=== PATIENT | female | born 1980 | race Caucasian/White ===

== ENCOUNTER 2017-11-10 03:27 | Inpatient (IN) | payer MEDICAID ==
[~2017-11-10] VITALS: Ht 175.3 cm; Wt 60.1 kg
[2017-11-10] VITALS (12 sets, daily range): BP systolic 100–127; BP diastolic 68–83
[2017-11-10] MEDS ORDERED: METOPROLOL TART25 MG PO (03:29)
[2017-11-10 04:00] LABS: APPEARANCE HAZY (CLEAR); BACTERIA MANY /hpf (NONE SEEN); BILIRUBIN 2+ (NEGATIVE); COLOR DK YELLOW (YELLOW); EPITHELIAL CELLS NSEEN /hpf (0-5); GLUCOSE NEGATIVE (NEGATIVE); HCG URINE NEGATIVE (NEGATIVE); KETONE SMALL mg/dL (NEGATIVE); NITRITE POSITIVE (NEGATIVE); PROTEIN NEGATIVE (NEGATIVE); RED CELLS - URINE 0-5 /hpf (0-5); UROBILINOGEN NORMAL (NORMAL); WHITE CELLS - URINE 25-50 /hpf (0-5)
[2017-11-10 04:08] LABS: BASOPHILS 0.4 % (0-2); EOSINOPHILS 1.8 % (0-7); HEMATOCRIT 36.3 % (36.0-48.0); HEMOGLOBIN 12.2 g/dL (12-16); IMMATURE GRANULOCYTES 0.4 % (0-5); LYMPHOCYTES 25.7 % (15-50); MCH 31.9 pg (26.0-34.0); MCHC 33.6 g/dL (31.0-37.0); MCV 94.8 fL (80.0-100.0); MEAN PLATELET VOLUME 11.4 fL (7.4-10.4); MONOCYTES 8.4 % (2-11); NEUTROPHILS 63.3 % (40-80); PLATELET COUNT 100 10x3/uL (130-400); RBC 3.83 10x6/uL (4.00-5.40); RDW 12.4 % (11.5-14.5); WBC 5.1 10x3/uL (4.8-10.8)
[2017-11-10 04:21] LABS: ALKALINE PHOSPHATASE 172 U/L (46-116); ALT (SGPT) 513 U/L (10-68); BILIRUBIN - TOTAL 8.52 mg/dL (0.2-1.3); CALC OSMOLALITY 276 mosm/kg (275-300); CALCIUM 7.9 mg/dL (8.5-10.1); CARBON DIOXIDE 27.7 mmol/L (21.0-32.0); CHLORIDE - SERUM 107 mmol/L (98-107); CREATININE - SERUM 0.7 mg/dL (0.6-1.3); GLUCOSE 92 mg/dL (74-106); POTASSIUM - SERUM 3.6 mmol/L (3.5-5.1); SODIUM 140 mmol/L (136-145); UREA NITROGEN 6 mg/dL (7-18); eGFR NON AFRICAN AMERICAN > 90 mL/min (90-120)
[2017-11-10 04:24] LABS: CHOL - HDL RATIO 2.3 ratio (2.3-4.1); CHOLESTEROL, TOTAL 107 mg/dL (0-200); HDL CHOLESTEROL 46 mg/dL (32-96); LDL CHOLESTEROL 53 mg/dL (0-100); LDL-HDL RATIO 1.2 ratio (1.5-3.5); TRIGLYCERIDE 41 mg/dL (30-200)
[2017-11-10 04:25] LABS: APTT 26.2 SECONDS (22.8-39.4); INR 1.15 (0.85-1.17); PROTIME 14.3 SECONDS (11.6-15.0)
[2017-11-10 04:28] LABS: LIPASE 5415 U/L (73-393)
[2017-11-10 04:29] LABS: AMYLASE - SERUM 476 U/L (25-115)
[2017-11-10 12:10] LABS: % SATURATION 40 % (15-55); IRON 96 ug/dl (35-150); TOTAL IRON BIND CAPACITY 238 ug/dl (260-445); UNSAT IRON BIND CAPACITY 142 ug/dl (150-375)
[2017-11-11] VITALS (7 sets, daily range): BP systolic 103–140; BP diastolic 58–81; Ht 175.3 cm; Wt 60.1 kg
[2017-11-11 06:31] LABS: BASOPHILS 0.6 % (0-2); EOSINOPHILS 1.5 % (0-7); HEMATOCRIT 32.1 % (36.0-48.0); HEMOGLOBIN 10.7 g/dL (12-16); IMMATURE GRANULOCYTES 0.3 % (0-5); LYMPHOCYTES 29.2 % (15-50); MCH 31.8 pg (26.0-34.0); MCHC 33.3 g/dL (31.0-37.0); MCV 95.3 fL (80.0-100.0); MEAN PLATELET VOLUME 12.3 fL (7.4-10.4); MONOCYTES 6.8 % (2-11); NEUTROPHILS 61.6 % (40-80); RBC 3.37 10x6/uL (4.00-5.40); RDW 12.3 % (11.5-14.5)
[2017-11-11 06:58] LABS: ALBUMIN 2.5 g/dL (3.4-5.0); ALKALINE PHOSPHATASE 167 U/L (46-116); BILIRUBIN - TOTAL 4.15 mg/dL (0.2-1.3); CALCIUM 7.4 mg/dL (8.5-10.1); CHLORIDE - SERUM 106 mmol/L (98-107); CHOL - HDL RATIO 5.3 ratio (2.3-4.1); CHOLESTEROL, TOTAL 112 mg/dL (0-200); HDL CHOLESTEROL 21 mg/dL (32-96); LDL CHOLESTEROL 74 mg/dL (0-100); LDL-HDL RATIO 3.5 ratio (1.5-3.5); LIPASE 1160 U/L (73-393); POTASSIUM - SERUM 3.5 mmol/L (3.5-5.1); PROTEIN - SERUM 5.2 g/dL (6.4-8.2); SODIUM 137 mmol/L (136-145); TRIGLYCERIDE 87 mg/dL (30-200); UREA NITROGEN 6 mg/dL (7-18)
[2017-11-11 07:00] LABS: ALT (SGPT) 290 U/L (10-68); AMYLASE - SERUM 116 U/L (25-115); CALC OSMOLALITY 268 mosm/kg (275-300); CARBON DIOXIDE 18.2 mmol/L (21.0-32.0); CREATININE - SERUM 0.5 mg/dL (0.6-1.3); GLUCOSE 50 mg/dL (74-106); eGFR NON AFRICAN AMERICAN > 90 mL/min (90-120)
[2017-11-11 07:03] LABS: PLATELET COUNT 72 10x3/uL (130-400); WBC 3.3 10x3/uL (4.8-10.8)
[2017-11-11 07:21] LABS: FOLATE (FOLIC ACID) - SERUM 15.7 ng/mL (>3.0)
[2017-11-11 07:29] LABS: PLATELET ESTIMATE DECREASED
[2017-11-12 01:26] VITALS: BP 110/80
[2017-11-12 05:00] VITALS: BP 113/75
[2017-11-12 06:56] LABS: BASOPHILS 0.3 % (0-2); EOSINOPHILS 2.3 % (0-7); HEMATOCRIT 29.2 % (36.0-48.0); HEMOGLOBIN 9.9 g/dL (12-16); IMMATURE GRANULOCYTES 0.5 % (0-5); MCH 31.9 pg (26.0-34.0); MCHC 33.9 g/dL (31.0-37.0); MCV 94.2 fL (80.0-100.0); MEAN PLATELET VOLUME 11.8 fL (7.4-10.4); MONOCYTES 6.2 % (2-11); NEUTROPHILS 66.7 % (40-80); PLATELET COUNT 79 10x3/uL (130-400); RDW 12.2 % (11.5-14.5); WBC 3.9 10x3/uL (4.8-10.8)
[2017-11-12 07:34] LABS: ALBUMIN 2.1 g/dL (3.4-5.0); ALKALINE PHOSPHATASE 115 U/L (46-116); BILIRUBIN - DIRECT 0.75 mg/dL (0.00-0.30); BILIRUBIN - INDIRECT 0.81 mg/dL (0.00-1.00); BILIRUBIN - TOTAL 1.56 mg/dL (0.2-1.3); CHLORIDE - SERUM 113 mmol/L (98-107); CREATININE - SERUM 0.5 mg/dL (0.6-1.3); LIPASE 886 U/L (73-393); SODIUM 141 mmol/L (136-145); eGFR NON AFRICAN AMERICAN > 90 mL/min (90-120)
[2017-11-12 07:36] LABS: AMYLASE - SERUM 38 U/L (25-115); CALC OSMOLALITY 275 mosm/kg (275-300); CARBON DIOXIDE 23.4 mmol/L (21.0-32.0); GLUCOSE 78 mg/dL (74-106); UREA NITROGEN 2 mg/dL (7-18)
[2017-11-12 07:40] LABS: ALT (SGPT) 180 U/L (10-68); CALCIUM 6.4 mg/dL (8.5-10.1)
[2017-11-12 09:20] VITALS: BP 114/85
[2017-11-12 12:03] VITALS: BP 117/87
[2017-11-12 15:39] VITALS: BP 117/69
[2017-11-12 20:43] VITALS: BP 105/76
[2017-11-13 05:40] VITALS: BP 126/79
[2017-11-13 06:40] LABS: BASOPHILS 0.8 % (0-2); EOSINOPHILS 3.4 % (0-7); HEMOGLOBIN 11.3 g/dL (12-16); IMMATURE GRANULOCYTES 0.8 % (0-5); LYMPHOCYTES 36.2 % (15-50); MCH 31.7 pg (26.0-34.0); MCHC 33.2 g/dL (31.0-37.0); MCV 95.5 fL (80.0-100.0); MEAN PLATELET VOLUME 12.5 fL (7.4-10.4); NEUTROPHILS 49.8 % (40-80); RBC 3.56 10x6/uL (4.00-5.40); RDW 12.5 % (11.5-14.5); WBC 3.8 10x3/uL (4.8-10.8)
[2017-11-13 06:57] LABS: PLATELET COUNT 99 10x3/uL (130-400)
[2017-11-13 06:59] LABS: ALKALINE PHOSPHATASE 134 U/L (46-116); ALT (SGPT) 181 U/L (10-68); AMYLASE - SERUM 46 U/L (25-115); BILIRUBIN - DIRECT 0.53 mg/dL (0.00-0.30); BILIRUBIN - INDIRECT 0.79 mg/dL (0.00-1.00); BILIRUBIN - TOTAL 1.32 mg/dL (0.2-1.3); CHLORIDE - SERUM 106 mmol/L (98-107); CREATININE - SERUM 0.5 mg/dL (0.6-1.3); GLUCOSE 104 mg/dL (74-106); LIPASE 929 U/L (73-393); SODIUM 140 mmol/L (136-145); eGFR NON AFRICAN AMERICAN > 90 mL/min (90-120)
[2017-11-13 07:02] LABS: ALBUMIN 2.7 g/dL (3.4-5.0); CALC OSMOLALITY 274 mosm/kg (275-300); CARBON DIOXIDE 29.7 mmol/L (21.0-32.0); POTASSIUM - SERUM 3.6 mmol/L (3.5-5.1); PROTEIN - SERUM 5.6 g/dL (6.4-8.2); UREA NITROGEN 1 mg/dL (7-18)
[2017-11-13 08:05] VITALS: BP 140/100
[2017-11-13] MEDS ORDERED: HYDROCODON-ACE1 EAC7 PO (10:09)
[2017-11-13 11:04] VITALS: BP 129/83
[2017-11-13 12:11] VITALS: BP 117/78
== END 2017-11-13 14:08 | disposition home or self-care (01) | DRG 418 ==
LOC: D.ER 03:27 → D.MS 04:27 → D.EDHOLD 04:27 → D.MS 19:02
PROVIDERS: Family Medicine; Internal Medicine Gastroenterology; Internal Medicine Nephrology; Surgery
PROC: 0FC98ZZ Extirpation of Matter from Common Bile Duct, Via Natural or Artificial Opening Endoscopic (ICD-10-PCS; principal; 2017-11-10 09:30)
PROC: 0FT44ZZ Resection of Gallbladder, Percutaneous Endoscopic Approach (ICD-10-PCS; 2017-11-13)
DX: K85.10 Biliary acute pancreatitis without necrosis or infection (principal); N39.0 Urinary tract infection, site not specified; K81.0 Acute cholecystitis; D64.9 Anemia, unspecified; D69.6 Thrombocytopenia, unspecified